=== PATIENT | female | born 1985 | race Caucasian/White ===

== ENCOUNTER 2024-05-13 09:51 | Emergency (ER) | payer MEDICAID ==
[~2024-05-13] VITALS: Ht 152.4 cm; Wt 72.0 kg
[2024-05-13 09:59] VITALS: O2SAT 99
[2024-05-13 10:00] VITALS: BP 126/68; PULSE 76; RESP 18; TEMP 36.9; O2SAT 99
[2024-05-13] MEDS ORDERED: CYCL10TA21 MT (11:08)
[2024-05-13] MEDS ORDERED: KETO10TA2 MT (11:08)
[2024-05-13] MEDS: KETOROLAC 30MG/ML VIAL IM ONE (11:25)
[2024-05-13] MEDS: CYCLOBENZAPRINE 10MG TABLET PO ONE (11:25)
== END 2024-05-13 11:45 | disposition home or self-care (01) ==
LOC: ER 09:51
DX: M54.2 Cervicalgia (principal); M25.511 Pain in right shoulder
CPT/HCPCS: 99283; 96372; J1885